=== PATIENT | male | born 1985 | race Caucasian/White ===

== ENCOUNTER 2017-08-07 08:13 | Emergency (ER) | payer MEDICAID ==
[~2017-08-07] VITALS: Ht 172.7 cm; Wt 78.0 kg
[2017-08-07 08:18] VITALS: BP 160/105
[2017-08-07 08:29] VITALS: BP 160/105
[2017-08-07] MEDS ORDERED: CLINDAMYCIN 150 MG CAP PO ONE (09:30)
[2017-08-07] MEDS ORDERED: IBUPROFEN 800 MG TAB PO ONE (09:30)
== END 2017-08-07 10:07 | disposition left against medical advice (07) ==
LOC: MED 08:13
DX: K08.89 Other specified disorders of teeth and supporting structures (principal); K04.7 Periapical abscess without sinus
CPT/HCPCS: 99283

== ENCOUNTER 2019-10-30 16:20 | Emergency (ER) | payer MEDICAID ==
[~2019-10-30] VITALS: Ht 172.7 cm; Wt 96.6 kg
--- NOTE | 2019-10-30 16:22 | NUR ---
Note ashlyn in ED - 10/30/19 at 1644 by NICKO CALLED PT. PT IS NOT IN THE LOBBY, BATHROOMS IN THE LOBBY, OR OUTSIDE OF THE ER. WILL CALL PT AGAIN LATER.
[2019-10-30 16:26] VITALS: BP 147/87
--- NOTE | 2019-10-30 16:42 | NUR ---
34 y/o male from home c/o LUQ pain x 3 days radiating to lt rib cage/shoulder. Denies N/V/D. Pt states sharp pain is provoked by inhalation. 8/10 sharp pain at this time. Afebrile upon arrival. Pt admits to heavy alcohol intake in the past. Awake and alert. Positioned for comfort. VSS medhx: ETOH abuse
[2019-10-30] MEDS ORDERED: KETOROLAC 60 MG/2 ML VIAL IM ONE (16:50)
[2019-10-30] MEDS ORDERED: ALUMINUM HYD/MAG/SIMETHICONE 30 ML, DICYCLOMINE HCL LIQUID 20 MG, LIDOCAINE VISCOUS 2% ... PO ONE ×3 (16:50)
[2019-10-30] MEDS ORDERED: ONDANSETRON 4 MG ODT PO ONE (16:50)
[2019-10-30] MEDS ORDERED: ALUMINUM HYD/MAG/SIMETHICONE 30 ML UDC ONE (16:55)
[2019-10-30] MEDS ORDERED: DICYCLOMINE HCL LIQUID 10 MG/5 ML UDC ONE (16:55)
[2019-10-30] MEDS ORDERED: LIDOCAINE VISCOUS 2% 20 ML UDC ONE (16:55)
--- NOTE | 2019-10-30 17:03 | NUR ---
Pt to x-ray via wheelchair
--- NOTE | 2019-10-30 17:11 | NUR ---
Pt returned from x-ray via wheelchair
[2019-10-30 17:25] LABS: BASOPHILS % (AUTO) 0.3 % (0.0-2.0); EOSINOPHILS # (AUTO) 0.2 K/uL (0-0.4); EOSINOPHILS % (AUTO) 1.8 % (0.0-4.0); HEMATOCRIT 43.1 % (36-52); HEMOGLOBIN 14.8 g/dL (12.0-18.0); LYMPHOCYTES # (AUTO) 2.5 K/uL (2.0-11.5); LYMPHOCYTES % (AUTO) 30.3 % (20.5-51.1); MEAN CORPUSCULAR HEMOGLOBIN 30 pg (27-31); MEAN CORPUSCULAR HGB CONC 34 g/dL (33-37); MEAN CORPUSCULAR VOLUME 87.2 fL (80-94); MONOCYTES # (AUTO) 0.9 K/uL (0.8-1.0); MONOCYTES % (AUTO) 10.8 % (1.7-9.3); NEUTROPHILS # (AUTO) 4.7 K/uL (1.8-7.7); NEUTROPHILS % (AUTO) 56.8 % (42.2-75.2); PLATELET COUNT (AUTO) 207 K/uL (140-450); RED BLOOD CELL COUNT(AUTO) 4.95 MIL/uL (4.20-6.10); WHITE BLOOD COUNT (AUTO) 8.3 K/uL (4.8-10.8)
--- NOTE | 2019-10-30 17:35 | NUR ---
Pt states decrease in abd discomfort at this time
[2019-10-30 17:53] LABS: ALBUMIN 3.9 g/dL (3.4-5.0); ANION GAP 15.4 (8-16); CARBON DIOXIDE 25.3 mmol/L (21-32); CREATININE 1.1 mg/dL (0.6-1.3); POTASSIUM 3.7 mmol/L (3.5-5.1); TOTAL BILIRUBIN 0.5 mg/dL (0.0-1.0)
[2019-10-30 18:46] VITALS: BP 132/82
--- NOTE | 2019-10-30 18:46 | NUR ---
Patient discharged with v/s stable. Written and verbal after care instructions given and explained. Patient alert, oriented and verbalized understanding of instructions. Ambulatory with steady gait. All questions addressed prior to discharge. ID band removed. Patient advised to follow up with PMD. Rx of zofran 4mg, Naproxen 500mg, and Pepcid 20mg given. Patient educated on indication of medication including possible reaction and side effects. Opportunity to ask questions provided and answered.
== END 2019-10-30 18:46 | disposition home or self-care (01) ==
LOC: MED 16:20
DX: K29.60 Other gastritis without bleeding (principal)
CPT/HCPCS: 36415; 74022; 80053; 81002; 82150; 83690; 85025; 96372; 99284; J1885; Q0162; 99283

== ENCOUNTER 2020-05-08 06:49 | Emergency (ER) | payer MEDICAID ==
[~2020-05-08] VITALS: Ht 172.7 cm; Wt 93.4 kg
[2020-05-08 06:53] VITALS: BP 129/89
--- NOTE | 2020-05-08 07:15 | NUR ---
34 Y/O MALE C/O RECTAL PAIN X 2 WEEKS. 5 DAYS AGO STARTED GETTING WORSE. PT SAYS THERES A "LUMP OR BLISTER" INSIDE THE RECTUM. PT STATES PAIN IS 4/10 AND FEELS ITCHY/RASH AND PULSING SENSATION. PT STATES THAT IT IS WORSE WHEN DEFECATING. PT DENIES BLOOD IN STOOL. PT STATES HE HAS BEEN PASSING SOFT STOOLS X5 DAYS WITH LBM THIS MORNING. ON ASSESSMENT, ACTIVE BOWEL SOUNDS ALL 4 QUADRANTS WITH LUMP OBSERVED IN ANUS. PT DENIES N/V/SOB AND TAKING ANYTHING FOR PAIN. PT STATES HIS GRANDFATHER FROM "LUMP" IN RECTUM. PT IS A&O X4 WITH EVEN AND UNLABORED RESPIRATIONS NOTED. PT LAYING IN BED, BED IN LOWEST POSITION WITH BRAKES LOCKED, X1 SIDERAIL UP. NKDA. PMH:HIGH CHOLESTEROL
--- NOTE | 2020-05-08 07:35 | NUR ---
DR GARDUNO AT BEDSIDE FOR FURTHER EVALUATION
[2020-05-08] MEDS ORDERED: KETOROLAC 60 MG/2 ML VIAL IM ONE (07:45)
[2020-05-08 08:12] VITALS: BP 129/89
--- NOTE | 2020-05-08 08:12 | NUR ---
Patient discharged with v/s stable. Written and verbal after care instructions given and explained. Patient alert, oriented and verbalized understanding of instructions. Ambulatory with steady gait. All questions addressed prior to discharge. ID band removed. Patient advised to follow up with PMD. Rx of motrin 800mg tab TID PO, mineral oil 15ml, hydrocortisone 100mg/60ml rectal enema suspension, colace 100mg BID given. Patient educated on indication of medication including possible reaction and side effects. Opportunity to ask questions provided and answered.
== END 2020-05-08 08:12 | disposition home or self-care (01) ==
LOC: MED 06:49
DX: K64.4 Residual hemorrhoidal skin tags (principal); R03.0 Elevated blood-pressure reading, without diagnosis of hypertension; E78.00 Pure hypercholesterolemia, unspecified
CPT/HCPCS: 96372; 99283; J1885